=== PATIENT | male | born 1975 | race American Indian/Alaskan Native ===

== ENCOUNTER 2018-10-10 10:14 | Emergency (ER) | payer BC ==
[2018-10-10 10:47] VITALS: BP 138/75
[2018-10-10] MEDS ORDERED: XYLOCAINE 1% MPF 5 mL INFILTRATI ONE (12:19)
--- NOTE | 2018-10-10 12:21 | Emergency Department Report ---
HPI - General Chief Complaint: Skin/Abscess/Foreign Body Time Seen by Provider: 10/10/18 12:08 - HPI HPI: 43-year-old male presents to the emergency department with complaint of a boil or abscess between his legs, just below his scrotum, that has been there for the past 5 days. He says that he does have a history of having an abscess in the past. Painful and swollen. He denies any fever. He has not taken anything for his symptoms prior to presentation. ED Past Medical Hx - Past Medical History Previous Medical History?: No - Surgical History Past Surgical History?: No - Social History Smoking Status: Current Every Day Smoker Substance Use Type: Alcohol - Medications Home Medications: Home Medications Medication Instructions Recorded Confirmed Last Taken Type HYDROcodone/APAP 5-325 [[place] 1 each PO Q6HR PRN #10 tablet 10/10/18 Unknown Rx 5/325] Sulfamethoxazole/Trimethoprim 1 each PO BID #14 tablet 10/10/18 Unknown Rx [Bactrim DS TAB] ED Review of Systems ROS: Stated complaint: BOIL BETWEEN LEGS Other details as noted in HPI Comment: All other systems reviewed and negative Constitutional: denies: chills, fever Eyes: denies: eye pain, vision change ENT: denies: ear pain, throat pain Respiratory: denies: cough, shortness of breath Cardiovascular: denies: chest pain, palpitations Gastrointestinal: denies: abdominal pain, vomiting Genitourinary: denies: dysuria, discharge Musculoskeletal: denies: back pain, arthralgia Skin: lesions. denies: pruritus Neurological: denies: headache, weakness Physical Exam - Physical Exam Vital Signs: Vital Signs 10/10/18 10:45 Temperature 98.2 F Pulse Rate 78 Respiratory 18 Rate Blood Pressure 138/75 O2 Sat by Pulse 98 Oximetry Physical Exam: GENERAL: The patient is well-developed well-nourished. HEENT: Normocephalic. Atraumatic. Patient has moist mucous membranes. EYES: Extraocular motions are intact. NECK: Supple. Trachea is midline. CHEST/LUNGS: Clear to auscultation. There is no respiratory distress noted. HEART/CARDIOVASCULAR: Regular. There is no tachycardia. There is no obvious murmur. ABDOMEN: Abdomen is soft, nontender. Patient has normal bowel sounds. There is no abdominal distention. SKIN: The patient has a perineal abscess, just below the scrotum, that is about the size of a golf ball. It is tender to palpation, fluctuant. There is no erythema, drainage, bleeding. NEURO: The patient is awake, alert, and oriented. The patient is cooperative. The patient has no focal neurologic deficits. The patient has normal speech. MUSCULOSKELETAL: There is no tenderness or deformity. There is no evidence of acute injury. ED Course Vital Signs 10/10/18 10:45 Temperature 98.2 F Pulse Rate 78 Respiratory 18 Rate Blood Pressure 138/75 O2 Sat by Pulse 98 Oximetry - I & D Perineum Type of Procedure: Simple Site: perineum Blade Size: 11 I & D Procedure: betadine prep, sterile drapes applied, sterile dressing applied, gauze wick placed Progress: The area was cleaned with Betadine solution. About 3 mL of 1% lidocaine without epinephrine was used to locally anesthetize the abscess. After this, a 1.5 cm incision was made with an 11 blade scalpel. Using my hands, I was able to express about 10 mL of purulent drainage return. The area was then packed with iodoform gauze and covered with sterile gauze. Patient tolerated the procedure well. ED Medical Decision Making - Medical Decision Making Patient presents with a 5 day history of a perineal abscess. An incision and drainage was done with about 10 mL of purulent drainage returned. Vital signs stable including being afebrile. The patient has gotten a large amount of relief once the area has been drained. He will be placed on antibiotics. Discussed soaking the area in warm water or using warm compresses. He will follow up with a primary care physician or return here for a wound check in 2-3 days. He will be seen sooner with any worsening of his symptoms, development of fever, or with any acute distress. - Differential Diagnosis abscess, cyst, oil, cellulitis Critical Care Time: No Critical care attestation.: If time is entered above; I have spent that time in minutes in the direct care of this critically ill patient, excluding procedure time. ED Disposition Clinical Impression: Abscess, perineum Disposition: - TO HOME OR SELFCARE Is pt being admited?: No Condition: Stable Instructions: Abscess Incision and Drainage (ED), Abscess (ED) Additional Instructions: Please follow up with a primary care physician or return to the emergency Department in 2 days for a wound check. Soak the area in warm water to try and express any further infection. Take the antibiotics as prescribed. Return to the emergency department immediately with any worsening of your symptoms, development of fever, or with any acute distress. Prescriptions: HYDROcodone/APAP 5-325 [[place] 5/325] 1 each PO Q6HR PRN #10 tablet PRN Reason: Pain Sulfamethoxazole/Trimethoprim [Bactrim DS TAB] 1 each PO BID #14 tablet Referrals: [facility] [Outside] - 2-3 Days TRISTIAN KESSLER MD [Staff Physician] - 2-3 Days
== END 2018-10-10 13:49 | disposition home or self-care (01) ==
LOC: ED 10:14
DX: L02.215 Cutaneous abscess of perineum (principal); F17.200 Nicotine dependence, unspecified, uncomplicated